=== PATIENT | female | born 1970 | race Hispanic/Latino ===

== ENCOUNTER 2022-12-22 11:12 | Inpatient (IN) | payer SELFPAY ==
[~2022-12-22 11:12] MED LIST: Iopamidol-370 76% 500 ML MDV (1 ML CHARGE) ONE
[2022-12-22] MEDS ORDERED: cefTRIAXone (ROCEPHIN) 2 GM VIAL ONE (11:48)
[2022-12-22] MEDS ORDERED: Sodium Chloride 0.9% 100 ML ONE (11:49)
[2022-12-22] MEDS ORDERED: Sodium Chloride 0.9% 250 ML 250 ML ONE (11:57)
[2022-12-22] MEDS ORDERED: Azithromycin 500 MG VIAL ONE (11:57)
[2022-12-22 12:01] LABS: #Eosinphils 0.1 thou/uL (0.0-0.7); #Monocytes 0.5 thou/uL (0.11-0.59); #Neutrophils 8.1 thou/uL (1.40-6.50); %Basophils 0.2 % (0.0-1.0); %Eosinophils 1.3 % (0.0-10.0); %Lymphocytes 7.3 % (21.0-51.0); %Monocytes 4.8 % (0.0-10.0); %Neutrophils 86.2 % (42.0-75.0); Hematocrit 41.4 % (36.0-47.0); Hemoglobin 14.3 g/dL (12.0-16.0); Mean Corpuscular HGB CONC 34.5 g/dL (32.0-36.0); Mean Corpuscular Hemoglobin 31.4 pg (27.0-31.0); Mean Corpuscular Volume 90.8 fl (78.0-98.0); Mean Platelet Volume 10.8 fL (7.4-10.4); Platelet Count 205 10x3/uL (130-400); RBC Distribution Width 12.6 % (11.5-14.5); Red Blood Cell (RBC) Count 4.56 mill/uL (4.20-5.40); White Blood Cell (WBC) Count 9.4 10x3/uL (4.8-10.8)
[2022-12-22 12:15] LABS: ALT (SGPT) 23 U/L (8-55); AST (SGOT) 17 U/L (5-34); Albumin 4.3 g/dL (3.5-5.0); Alkaline Phosphatase 93 U/L (40-110); Anion Gap 11 mmol/L (10-20); BUN (Urea Nitrogen) 15 mg/dL (9.8-20.1); Bilirubin, Total 0.7 mg/dL (0.2-1.2); Calc. Creatinine Clearance 0 mL/min (70-130); Calcium 8.7 mg/dL (7.8-10.44); Carbon Dioxide 26 mmol/L (22-29); Chloride 103 mmol/L (98-107); Estimated GFR 105; Globulin 3.2 g/dL (2.4-3.5); Glucose 108 mg/dL (70-105); Potassium 3.4 mmol/L (3.5-5.1); Protein, Total 7.5 g/dL (6.0-8.3); Sodium 137 mmol/L (136-145)
[2022-12-22 12:39] LABS: SARS-CoV-2 NAA Rapid Test Not Detected (NotDetected)
[2022-12-22] MEDS ORDERED: methylPREDNISolone Sod Succ/PF 125 MG/2 ML VIAL ONE (13:18)
[2022-12-22 16:02] LABS: Bilirubin Negative (Negative); Blood, Urine Negative (Negative); Clarity Clear (Clear); Glucose, Urine (Dipstick) Normal (Negative); Ketone, Urine Negative (Negative); Leukocyte Negative Leu/uL (Negative); Nitrite Negative (Negative); Protein, Urine (Dipstick) 20 mg/dL (Neg-Trace); Urobilinogen Normal mg/dL (Less than 2); pH, Urine 6.5 (5.0-9.0)
[2022-12-22 16:06] LABS: CAUTI Indications for Culture Fever or rigors; RBC/HPF None Seen HPF (0-3); Specific Gravity, Urine Greater than 1.060 (1.002-1.036); Squamous Epithelial 0-3 HPF (0-3); WBC/HPF None Seen HPF (0-3)
[2022-12-22 16:07] LABS: Urine Culture Reflex No No
[2022-12-22] MEDS ORDERED: Ondansetron PF 4 MG/2 ML Vial IVP PRN (16:09)
[2022-12-22] MEDS ORDERED: Acetaminophen 325 MG TAB PO PRN (16:09)
[2022-12-22 17:40] VITALS: BMI 38.4
[2022-12-22] MEDS: Ipratropium/Albuterol 3 ML NEB NEB SCH ×2 (18:54→22:18)
[2022-12-22] MEDS: methylPREDNISolone Sod Succ 40 MG VIAL IVP SCH (19:29)
[2022-12-22] MEDS ORDERED: Ipratropium/Albuterol 3 ML NEB ONE (19:31)
[2022-12-23] MEDS: methylPREDNISolone Sod Succ 40 MG VIAL IVP SCH ×3 (00:18→12:12)
[2022-12-23] MEDS: Ipratropium/Albuterol 3 ML NEB NEB SCH ×4 (02:11→13:09)
[2022-12-23 05:19] LABS: #Monocytes 0.4 thou/uL (0.11-0.59); #Neutrophils 6.4 thou/uL (1.40-6.50); %Basophils 0.1 % (0.0-1.0); %Neutrophils 84.6 % (42.0-75.0); Hematocrit 40.9 % (36.0-47.0); Hemoglobin 13.4 g/dL (12.0-16.0); Mean Corpuscular HGB CONC 32.8 g/dL (32.0-36.0); Mean Corpuscular Hemoglobin 30.4 pg (27.0-31.0); Mean Corpuscular Volume 92.7 fl (78.0-98.0); Platelet Count 223 10x3/uL (130-400); RBC Distribution Width 12.6 % (11.5-14.5); Red Blood Cell (RBC) Count 4.41 mill/uL (4.20-5.40); White Blood Cell (WBC) Count 7.5 10x3/uL (4.8-10.8)
[2022-12-23 05:50] LABS: Anion Gap 17 mmol/L (10-20); BUN (Urea Nitrogen) 13 mg/dL (9.8-20.1); Calc. Creatinine Clearance 154 mL/min (70-130); Calcium 8.8 mg/dL (7.8-10.44); Carbon Dioxide 19 mmol/L (22-29); Chloride 109 mmol/L (98-107); Estimated GFR 107; Glucose 122 mg/dL (70-105); Potassium 3.8 mmol/L (3.5-5.1); Sodium 141 mmol/L (136-145)
[2022-12-23] MEDS ORDERED: methylPREDNISolone Sod Succ 40 MG VIAL ONE ×2 (06:03→11:55)
[2022-12-23] MEDS ORDERED: Sodium Chloride 0.9% 100 ML ONE (09:13)
[2022-12-23] MEDS ORDERED: Azithromycin 500 MG VIAL ONE (09:13)
[2022-12-23] MEDS ORDERED: cefTRIAXone (ROCEPHIN) 1 GM VIAL ONE (09:14)
[2022-12-23] MEDS ORDERED: cefTRIAXone\\ROCEPHIN 1 GM in Sodium Chloride 0.9% 100 ML IVPB SCH (11:00)
[2022-12-23] MEDS ORDERED: Azithromycin 500 MG in Sodium Chloride 0.9% 250 ML 250 ML IVPB SCH (12:00)
[2022-12-23 16:55] VITALS: BP 115/62; TEMP 98.3
== END 2022-12-23 17:22 | disposition home or self-care (01) | DRG 193 ==
LOC: ERS 11:12 → ERHOLD 15:36 → OBSVTOIN 16:07
PROVIDERS: ADMIT Internal Medicine; ATTEND Internal Medicine
DX: J18.9 Pneumonia, unspecified organism (principal); J96.01 Acute respiratory failure with hypoxia; J44.9 Chronic obstructive pulmonary disease, unspecified; N63.10 Unspecified lump in the right breast, unspecified quadrant; Z87.891 Personal history of nicotine dependence; Z11.52 Encounter for screening for COVID-19
CPT/HCPCS: 36415; 71045; 71275; 80048; 80053; 81001; 83605; 85025; 85610; 85730; 87040; 87086; 94640; 94760; J0456; J0696; J1650; J2920; J2930; J3490; J7050; J7620; Q9967